=== PATIENT | male | born 1985 | race Caucasian/White ===

== ENCOUNTER 2025-04-26 11:42 | Emergency (ER) | payer BC ==
[2025-04-26] MEDS ORDERED: Dexamethasone 10 MG/ML VIAL ONE (12:17)
== END 2025-04-26 12:21 | disposition home or self-care (01) ==
LOC: BURERS 11:42
DX: L23.7 Allergic contact dermatitis due to plants, except food (principal); F17.210 Nicotine dependence, cigarettes, uncomplicated
CPT/HCPCS: 96372; 99282; J1100